=== PATIENT | female | born 1970 | race Caucasian/White ===

== ENCOUNTER 2019-08-28 10:06 | Emergency (ER) | payer MEDICAID ==
[~2019-08-28] VITALS: Ht 162.6 cm; Wt 104.3 kg
--- NOTE | 2019-08-28 10:18 | NUR ---
Patient called, she was in the restroom.
[2019-08-28 10:20] VITALS: BP_SYST 167
--- NOTE | 2019-08-28 10:20 | NUR ---
Patient to ER bed 7 to gown for evaluation. Side rails up. Report given to CARLEEN Churchill.
--- NOTE | 2019-08-28 10:22 | NUR ---
Patient arrived in the ED c/o headaches for the last 4 days. Denied any chest pain or shortness of breath. Denied any fevers, chills, nausea or vomiting. Patient is alert and oriented x4, respirations even and unlabored, speaking in full sentences, and ambulating with a steady gait. VSS, pain level 8/10. Informed of the approximate wait time. Instructed to notify ED staff for any changes in condition or worsening of symptoms while waiting to be seen by an ED provider. Patient verbalized understanding.
--- NOTE | 2019-08-28 10:29 | NUR ---
ER Dr. Juárez at bedside examining patient.
[2019-08-28] MEDS ORDERED: PREDNISONE 20 MG TABLET PO ONE (10:30)
[2019-08-28] MEDS ORDERED: KETOROLAC TROMETHAMINE 60 MG/2 ML VIAL IM ONE (10:30)
--- NOTE | 2019-08-28 10:45 | NUR ---
Administered Prednisone PO and Toradol IM as ordered by Dr. Juárez. Patient tolerated the medications well. See eMAR for details.
--- NOTE | 2019-08-28 11:15 | NUR ---
SITTING UP AT EDGE OF BED. STATES FEELING BETTER. RESP UNLABORED, SKIN WARM AND DRY NO DISTRESS
[2019-08-28 11:43] VITALS: BP_SYST 134
--- NOTE | 2019-08-28 11:45 | NUR ---
ER discussed with the patient the results and treatment provided. Patient given written and verbal discharge instructions and verbalized understanding. Opportunity for questions provided and answered. Patient in stable condition, last set of vital signs within normal limits, pain scale 0/10, speaking in full sentences and ambulated with a steady gait upon discharge. ID arm band removed. Rx of Motrin and Robaxin given. Patient educated on pain management and to follow up with PMD. Medication side effect fact sheet provided.
== END 2019-08-28 11:43 | disposition home or self-care (01) ==
LOC: SED 10:06
DX: G44.209 Tension-type headache, unspecified, not intractable (principal); I10 Essential (primary) hypertension
CPT/HCPCS: 96372; 99283; J1885; J7512

== ENCOUNTER 2020-03-23 20:10 | Emergency (ER) | payer MEDICAID ==
[~2020-03-23] VITALS: Ht 160 cm; Wt 102.1 kg
[2020-03-23 20:21] VITALS: BP_SYST 102
--- NOTE | 2020-03-23 20:21 | NUR ---
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 Per police, patient's blood pressure was noted to be elevated which is the reason of their visit. Patient otherwise has no medical complaints at this time. She denied any associated chest pain, shortness of breath, palpitations, or headache. Denied any traumas or injuries. Denies recent illness. No modifying factors. Pt breathing easy, unlabore. Pt ambulatory with steady gait.
--- NOTE | 2020-03-23 20:55 | NUR ---
ER at the ambulance bay examining patient.
[2020-03-23 21:05] VITALS: BP_SYST 102
--- NOTE | 2020-03-23 21:05 | NUR ---
Patient was medically cleared and was given written and verbal discharge instructions by Dr Mauro, and verbalizes understanding. ER MD discussed with patient the results and treatment provided. Patient in stable condition. ID arm band removed. Rx of Losartan Potassium 100 mg tab given. Patient educated on pain management and to follow up with PMD by Dr Mauro. Pain Scale 0/10. Opportunity for questions provided and answered. Pt was accompanied by PD to police car in handcuffs.
== END 2020-03-23 21:05 ==
LOC: SED 20:10
DX: I10 Essential (primary) hypertension (principal)
CPT/HCPCS: 99283

== ENCOUNTER 2023-03-01 10:47 | Emergency (ER) | payer MEDICAID ==
[~2023-03-01] VITALS: Ht 154.9 cm; Wt 111.1 kg
[2023-03-01 11:15] VITALS: BP_SYST 162; PULSE 74; RESP 18; TEMP 98.3; O2SAT 99
[2023-03-01 11:22] LABS: BASOPHILS # (AUTO) 0.1 K/uL (0.0-0.2); BASOPHILS % (AUTO) 0.6 % (0.0-2.0); EOSINOPHILS # (AUTO) 0.3 K/uL (0.0-0.4); EOSINOPHILS % (AUTO) 2.9 % (0.0-4.0); HEMATOCRIT 41.6 % (36-48); HEMOGLOBIN 13.5 g/dL (12.0-16.0); LYMPHOCYTES % (AUTO) 10.5 % (20.5-51.5); MEAN CORPUSCULAR HEMOGLOBIN 28 pg (27-31); MEAN CORPUSCULAR HGB CONC 33 % (32-36); MEAN CORPUSCULAR VOLUME 86 fL (79.0-98.0); MONOCYTES # (AUTO) 0.5 K/uL (0.0-1.0); NEUTROPHILS # (AUTO) 7.7 K/uL (1.8-7.7); PLATELET COUNT (AUTO) 236 K/uL (130-430); RED BLOOD CELL COUNT(AUTO) 4.83 MIL/uL (4.2-6.2); RED CELL DISTRIBUTION WIDTH 13.6 % (9.0-15.0); WHITE BLOOD COUNT (AUTO) 9.5 K/uL (4.8-10.8)
[2023-03-01 11:37] LABS: CALCIUM 9.6 mg/dL (8.4-11.0); CREATININE 0.75 mg/dL (0.55-1.30); POTASSIUM 3.9 mmol/L (3.5-5.1)
[2023-03-01 11:41] LABS: ALBUMIN 3.9 g/dL (3.4-4.8); BILIRUBIN,DIRECT 0.1 mg/dL (0.0-0.3); TOTAL BILIRUBIN 0.4 mg/dL (0.0-1.0); TOTAL PROTEIN, SERUM 7.1 g/dL (6.4-8.3)
[2023-03-01] MEDS ORDERED: ONDANSETRON 4 MG ODT TAB PO ONE (12:00)
[2023-03-01] MEDS ORDERED: KETOROLAC TROMETHAMINE 30 MG VIAL IM ONE (12:00)
[2023-03-01 12:09] LABS: BILIRUBIN,URINE NEGATIVE (NEGATIVE); BLOOD, URINE 3+ (NEGATIVE); CLARITY/URINE CLEAR (CLEAR); COLOR,URINE YELLOW (YELLOW); GLUCOSE,URINE NEGATIVE (NEGATIVE); KETONES,URINE NEGATIVE (NEGATIVE); LEUKOCYTE ESTERASE ,URINE TRACE (NEGATIVE); NITRITE, URINE NEGATIVE (NEGATIVE); PROTEIN URINE NEGATIVE (NEGATIVE); UROBILINOGEN,URINE 0.2 (0.2-1.0)
[2023-03-01 12:45] LABS: BACTERIA,URINE RARE /HPF (None Seen); HYALINE CASTS, URINE 0-1 /LPF (None Seen); WBC,URINE 20-50 /HPF (0-3)
[2023-03-01] MEDS ORDERED: NACL 0.9% 1,000 ML IV ONE (13:00)
[2023-03-01] MEDS ORDERED: cefTRIAXone 1 GM IVPB PREMIX 50 ML IV ONE (13:00)
[2023-03-01] MEDS ORDERED: TAMSULOSIN HCL 0.4 MG CAP PO SCH (13:00)
[2023-03-01] MEDS ORDERED: TAMSULOSIN HCL 0.4 MG CAP PO ONE (14:00)
[2023-03-01] MEDS ORDERED: CEPH-548 PO (14:18)
[2023-03-01] MEDS ORDERED: ACET-2634 PO (14:18)
[2023-03-01] MEDS ORDERED: IBUP-1970 PO (14:18)
[2023-03-01] MEDS ORDERED: TAMS-11 PO (14:18)
[2023-03-01 15:30] VITALS: BP_SYST 162; PULSE 69; RESP 18; TEMP 97.4; O2SAT 98
== END 2023-03-01 15:30 | disposition home or self-care (01) ==
LOC: SED 10:47
DX: N13.30 Unspecified hydronephrosis (principal); N39.0 Urinary tract infection, site not specified; I10 Essential (primary) hypertension; Z79.899 Other long term (current) drug therapy
CPT/HCPCS: 99285; 74176; 96365; 80076; 80048; 81001; 83690; 85025; 36415; 76376; 96372; Q0162; J0696; J1885; 81000; 81015

== ENCOUNTER 2023-04-03 13:04 | Emergency (ER) | payer MEDICAID ==
[~2023-04-03] VITALS: Ht 154.9 cm; Wt 107.5 kg
[~2023-04-03 13:04] MED LIST: ACET-2634 PO; CEPH-548 PO; IBUP-1970 PO; TAMS-11 PO
[2023-04-03 13:13] VITALS: BP_SYST 146; PULSE 96; RESP 22; TEMP 98.3; O2SAT 98
[2023-04-03] MEDS ORDERED: PRED20TA PO (13:33)
[2023-04-03] MEDS ORDERED: ACYC400T19 PO (13:33)
[2023-04-03] MEDS ORDERED: HYDROcodone/ACETAMIN 5-325 MG TAB (NORCO/ VICODIN) PO ONE (14:00)
[2023-04-03 14:04] VITALS: BP_SYST 146; PULSE 96; RESP 22; TEMP 98.3; O2SAT 98
== END 2023-04-03 14:04 | disposition home or self-care (01) ==
LOC: SED 13:04
DX: G51.0 Bell's palsy (principal); R20.2 Paresthesia of skin; I10 Essential (primary) hypertension; Z79.899 Other long term (current) drug therapy
CPT/HCPCS: 70450-TC; 76376; 99284